=== PATIENT | female | born 1945 | race Caucasian/White ===

== ENCOUNTER → 2024-11-18 10:11 | Outpatient (REF) | payer OTHER, SELFPAY | LOC: RAD 10:11 | PROVIDERS: ATTENDING PHYSICIAN Internal Medicine Cardiovascular Disease; FAMILY PHYSICIAN Nurse Practitioner Family | DX: I49.3 Ventricular premature depolarization (principal); R07.89 Other chest pain; I10 Essential (primary) hypertension; E78.5 Hyperlipidemia, unspecified; I95.1 Orthostatic hypotension; R94.39 Abnormal result of other cardiovascular function study; I49.1 Atrial premature depolarization; R42 Dizziness and giddiness; R06.09 Other forms of dyspnea | CPT/HCPCS: 75574; Q9967 ==

== ENCOUNTER 2024-11-30 17:13 | Inpatient (IN) | payer OTHER, SELFPAY ==
[2024-11-30] VITALS (18 sets, daily range): BP systolic 83–167; BP diastolic 50–133; BMI 36.1
[2024-11-30 12:49] LABS: Glucose - Point of Care 160 mg/dl (70-99)
[2024-11-30 12:51] LABS: Hematocrit 43.0 % (37.0-47.0); Hemoglobin 14.4 g/dL (12.0-16.0); Mean Corp Hgb Conc. 33.5 g/dL (33.0-37.0); Mean Corpuscular Volume 94.7 fL (81.0-99.0); Platelet Count 215 10^3/uL (130-400); Red Cell Dist. Width 13.2 % (11.5-14.5)
[2024-11-30] MEDS: LOW STRENGTH ASPIRIN 81 MG PO (12:56)
[2024-11-30 13:10] LABS: Blood Urea Nitrogen 20 mg/dl (7-17); Calcium 9.5 mg/dl (8.4-10.2); Carbon Dioxide 31 mmol/L (22-30); Chloride 101 mmol/L (98-107); Estimated Creatinine Clearance 51 ml/min; Glucose 160 mg/dl (70-99); Potassium 4.2 mmol/L (3.5-5.1); Sodium 139 mmol/L (135-145); eGFR 56.60
[2024-11-30] MEDS: NSS 295 ML IV (14:18)
[2024-11-30 15:12] LABS: ACT-LR - POC 276 Seconds (116-155)
--- NOTE | 2024-11-30 16:32 | HPS.HSE ---
Family Physician
-
Family Physician: Tricia Hensley
Chief Complaint
-
Abnormal Cologuard, abnormal stress test
History of Present Illness
79-year-old female had an abnormal Cologuard test. She was referred for an outpatient stress test and coronary CT which were abnormal therefore sent in for a cath. Cath showed she has obstructive disease 80 to 85% ostial RCA and mid RCA. She
needs GI workup therefore PCI not done yet but planning in the near future as long as GI workup is negative. Patient is cleared for GI procedure per cardiology
Medical History
Past Medical History
Past Medical History: Reports CAD, HTN, Hypothyroidism and NIDDM
Additional Past Medical History:
depression, sleep apnea, history of lung cancer with radiation in 2022, COPD, fibromyalgia
Past Surgical History: Reports Other (B/L feet surgery since age 10)
Additional Past Surgical History:
Ablation for arrhythmia, bilateral feet surgeries since age 10
Social History
Tobacco: Former Smoker
Alcohol: None
Drug: None
Living: Alone
Family History
Family History: CAD (Mother) and Other (Father from CVA, mother with history of Alzheimer's dementia)
Allergies / Home Medications
Allergies reflects when Allergies were last updated in [facility].
Home Medications with original date entered in [facility]
Allergy/Medication List:
Allergies
Allergy/AdvReac Type Severity Reaction Status Date / Time
latex Allergy Itching Verified 11/30/24 14:23
nickel Allergy Itching Verified 11/30/24 14:23
soy Allergy Itching Verified 11/30/24 14:23
Sulfa (Sulfonamide Allergy Pharmacy Verified 11/30/24 14:23
Antibiotics) to Review
Home Medications
albuterol sulfate 90 mcg/actuation aerosol inhaler 2 puff inhalation 6XD 11/30/24
aspirin 81 mg tablet 81 mg PO DAILY 11/30/24
atenolol 25 mg tablet 25 mg PO DAILY 11/30/24
atorvastatin 40 mg tablet 40 mg PO DAILY 11/30/24
bupropion HCl 150 mg 24 hr tablet, extended release 150 mg PO DAILY 11/30/24
levothyroxine 50 mcg tablet 50 mcg PO DAILY 11/30/24
losartan 50 mg-hydrochlorothiazide 12.5 mg tablet 1 tab PO DAILY 11/30/24
meclizine 25 mg tablet 25 mg PO DAILY 11/30/24
metformin 500 mg tablet 500 mg PO BID 11/30/24
sodium sul 1.479 gram-potas ch 0.188 gram-magnes sul 0.225 gram tablet (Sutab) 0 tab PO PER PKG DIR 11/30/24
umeclidinium 62.5 mcg-vilanterol 25 mcg/actuation powdr for inhalation (Anoro Ellipta) 1 inh inhalation DAILY 11/30/24
venlafaxine 75 mg tablet 75 mg PO DAILY 11/30/24
Review of Systems
-
A 12 point ROS was completed and negative except as noted: Yes
Constitutional: Reports Other (Fibromyalgia)
Respiratory: Reports Trouble Breathing (With ambulation)
Cardiac: Denies Chest Pain
Physical Exam
Vital Signs
Vital Signs
Temp Pulse Resp BP Pulse Ox
97.5 F 68 12 130/67 95
11/30/24 12:35 11/30/24 15:46 11/30/24 15:46 11/30/24 15:46 11/30/24 16:16
Physical Exam
General: Comfortable and Conversant
Respiratory: Clear
Cardiac: S1/S2 and Regular Rhythm
GI: Soft, Non Tender and Normal Bowel Sounds
Skin: Other (Right wrist with good pulses)
Neuro: Nonfocal/grossly intact
Psych: Intact Judgment/Insight
Laboratory Results
-
11/30/24 12:43
11/30/24 12:43
Data Reviewed
-
Medical Tests (Nuc Med, Echo, EKG etc): Report Reviewed by me
Impression/Plan
-
IMPRESSION/PLAN:
ECHO 08/14/24- Technically suboptimal study.Normal left and right ventricular systolic function, but regional wall motion abnormality cannot be excluded due to the technical limitation.Grade 1 diastolic dysfunction.No significant valve disease.
Hypermobile possibly aneurysmal interatrial septum.
Coronary angiography 1924-left main-moderate to severe ostial calcified plaque , LAD-severe proximal and middle mid calcified Plaque, LCx-moderate to severe proximal calcified plaque, RCA-severe diffuse proximal to mid calcified plaque, severe
distal calcified plaque. Multivessel coronary disease.
# Positive Cologuard test
GI consultation for colonoscopy
Cardiology cleared for GI procedure
Clears starting tomorrow am.
# Coronary artery disease
Status post cath with no PCI given colonoscopy
Once GI workup is over patient needs PCI
Continue aspirin, statin
# Hypertension-continue losartan, atenolol.
# Diabetes-hemoglobin C9p--tdkjudj
Hold metformin given cardiac cath and may needing to be n.p.o.
Accu-Cheks and sliding scale coverage
# Depression-continue venlafaxine, bupropion
# Hyperlipidemia-continue statin
# Hypothyroidism-continue levothyroxine
# Sleep apnea-CPAP at 6 cm water
# Fibromyalgia
# History of lung cancer on the left side with history of radiation 2-1/2 years ago
# Pc-cspeor-jbaz over 35 years ago
# DVT prophylaxis-Lovenox
# CODE STATUS-full code
Discussed with nursing at bedside
D/W Cardiology
--- NOTE | 2024-11-30 17:18 | ITS.CL.CATH ---
Urology Nurse - Catheterization
Cardiac Catheterization
Procedure Report:
LEFT HEART CATHETERIZATION
Date of Procedure: November 30, 2024
Referring: Mark Jones MD
PROCEDURES:
1. Left heart catheterization, coronary angiogram.
2. Moderate sedation.
3. Intravascular ultrasound of distal Left main/ostial left circumflex
INDICATION: Ongoing dyspnea on exertion with abnormal CT coronary angiogram and stress test as an outpatient.
ACCESS: Right radial artery, 6Fr. sheath, under US guidance.
HEMODYNAMICS : (mmHg)
AO (s/d) : 122/67
LVEDP : 13
No significant gradient across the aortic valve to suggest aortic stenosis.
CORONARY FINDINGS
Dominance: Right
Left Main Trunk (LMT): Large caliber vessel that gives rise to the LAD and LCx branches and is free of angiographic disease. Distal left main has 20% calcified plaque.
Left Anterior Descending Artery (LAD): Large caliber vessel that gives off 1 major diagonal branches as it courses along the anterior inter-ventricular groove before wrapping around the cardiac apex. Mid to distal LAD has diffuse 40 to 50%
stenosis. Ostial D1 has 40 to 50% stenosis.
Left Circumflex Artery (LCx): Large caliber vessel that gives off 2 major obtuse marginal (OM) branches as it courses along the atrio-ventricular (AV) groove. Ostial left circumflex has 40% calcified stenosis. Otherwise , there is mild to
moderate diffuse atherosclerotic plaque without any focal obstructive lesions.
Right Coronary Artery (RCA): Medium caliber dominant vessel that gives rise to the posterior descending artery (RPDA) and postero-lateral ventricular (RPLV) branches distally. There is calcium noted in the aorta at the takeoff of the RCA. Ostial
RCA has a 75 to 80% stenosis. Mid RCA has a focal 80% stenosis. SASHA-3 flow was noted into the distal vessel. Right posterolateral system has diffuse moderate to severe stenosis with zphb-au-xauyl collaterals from the left posterolateral branch.
In one of the images, competitive flow is noted in the left posterolateral branch from the RPL system.
IVUS of Distal LAD: Given concern for significant distal left main stenosis versus ostial left circumflex stenosis decision was made to proceed with intravascular ultrasound to interrogate the distal LAD further. The left coronary artery was
selectively engaged using a 6 [place] EBU 3.5 guide catheter. Additional heparin was given to maintain a therapeutic ACT throughout the case. A 190 cm 0.014 run-through wire was carefully navigated into the distal left circumflex. Using a [place]
eye IVUS catheter careful pullback was completed with multiple measurements obtained in the ostial left circumflex as well as distal left main regions which showed calcified plaque. The minimal luminal area in both of these regions were still
significantly higher than 6 mm� (ranging anywhere from 9-10mm2).
SEDATION: 37 minutes of procedural sedation was utilized. IV Midazolam and IV Fentanyl were administered. An independent medical office representative was present to assist with and help manage the patient's level of consciousness and physiologic status.
RADIATION SUMMARY: Fluoro Time (min): 6.8, Dose (mGy): 544.94, DAP (Gy.cm2) : 35.0
Closure Device: There were no immediate intra-procedural complications. The sheath was pulled in the laboratory technology teacher and a vascular-band applied to the right wrist for radial artery hemostasis using the patent hemostasis technique.
CONCLUSIONS
1. Ostial RCA has a 75 to 80% stenosis. Mid RCA has a focal 80% stenosis.
2. Mid to distal LAD has diffuse 40 to 50% stenosis. Ostial D1 has 40 to 50% stenosis.
3. Ostial left circumflex has 40% calcified stenosis. Otherwise , there is mild to moderate diffuse atherosclerotic plaque without any focal obstructive lesions.
4. Intravascular ultrasound of distal left main did not reveal any obstructive coronary artery disease.
RECOMMENDATIONS
1. Wean radial band per protocol. Monitor right hand perfusion and for bleeding from the radial site following removal of the vascular-band following trans-radial access.
2. Continue aggressive medical therapy and risk factor modification for secondary CAD prevention.
3. Hydrate with normal saline to mitigate the risk of contrast-induced acute kidney injury.
4. Given recently positive Cologuard, after discussion extensively with the family in the setting of ongoing dyspnea on exertion on at least 1 antianginal therapy, plan to obtain inpatient GI consult for consideration for colonoscopy to assess
underlying etiology for positive Cologuard in case that would preclude patient from being able to tolerate dual antiplatelet therapy. We did discuss medical therapy versus PCI of RCA and in a shared decision-making fashion family would prefer PCI
along with medications. We will optimize medications and add a second antianginal in the meantime. Given she is not complaining of any ACS symptoms with RCA disease as noted above, she is overall still low risk for undergoing endoscopy/colonoscopy
as recommended by GI. Depending on GI input and workup we will discuss timing of PCI.
Copy to: Mark Jones MD
Adilia Mathews MD, FACC, [facility]
[2024-11-30 18:14] LABS: Glucose - Point of Care 171 mg/dl (70-99)
--- NOTE | 2024-11-30 18:55 | PTCARENOTE ---
Patient received from the record label intern, assisted to bed. Right radial band intact with 11cc of air. Patient with persistent vertigo being worked up for vestibular vertigo as and out patient. She had vertigo but it did resolve while I was in the room.
She is AO x3, [place] with aids. NSR in the 80's, BP 109/53. Shortness of breath with exertion, lungs diminished 93% on room air. Left mid back chronic pain occasionally radiates to her left shoulder, rates 5 out 10. Assisted to the bathroom, patient is
not to walk to the bathroom unassisted and she verbalized understanding, call adler placed in reach
[2024-11-30] MEDS: SENOKOT 17.2 MG PO (20:37)
[2024-11-30] MEDS: MIRALAX 17 GRAMS PO (20:37)
[2024-11-30] MEDS: NORVASC 2.5 MG PO (20:37)
[2024-11-30 23:03] LABS: Glucose - Point of Care 159 mg/dl (70-99)
[2024-11-30] MEDS: MELATONIN 5 MG PO (23:33)
[2024-11-30] MEDS: TYLENOL 650 MG PO (23:33)
--- NOTE | 2024-12-01 00:02 | PTCARENOTE ---
Patient received at change of shift resting in the bed. Right radial TR band intact, pox 94-95% on right hand, radial pulse palpable. Discussed activity restrictions with patient who verbalized understanding but needs reinforcement with
restrictions. The TR band was removed without incident, gauze and tegaderm applied. Discussed extensively with patient to use the call adler when getting out of bed due to recent issues with vertigo. A bed and chair alarm were placed. Sinus rhythm on
telemetry. The patient denies chest pain but endorses chronic left lower/mid back pain, PRN acetaminophen and one time dose of melatonin given per patient request, see MAR. Plan of care discussed. Call adler within reach. Care ongoing.
[2024-12-01 03:21] VITALS: BP 111/59
[2024-12-01 03:24] VITALS: BMI 35.9
[2024-12-01 04:11] LABS: Hematocrit 39.6 % (37.0-47.0); Hemoglobin 13.1 g/dL (12.0-16.0); Mean Corp Hgb Conc. 33.1 g/dL (33.0-37.0); Mean Corpuscular Volume 95.2 fL (81.0-99.0); Platelet Count 208 10^3/uL (130-400); Red Cell Dist. Width 13.2 % (11.5-14.5)
[2024-12-01 04:36] LABS: Blood Urea Nitrogen 23 mg/dl (7-17); Calcium 9.3 mg/dl (8.4-10.2); Carbon Dioxide 26 mmol/L (22-30); Chloride 103 mmol/L (98-107); Estimated Creatinine Clearance 57 ml/min; Glucose 135 mg/dl (70-99); HDL Cholesterol 37 mg/dl; LDL Cholesterol, Calculated 68 mg/dl; Potassium 4.1 mmol/L (3.5-5.1); Sodium 139 mmol/L (135-145); Very Low Density Lipoprotein 47 mg/dl (0-30); eGFR > 60.00
[2024-12-01] MEDS: SYNTHROID 50 MCG PO (06:10)
[2024-12-01] MEDS: SPIRIVA RESPIMAT 2.5 MCG 2 PUFF INH (08:00)
[2024-12-01] MEDS: STRIVERDI RESPIMAT 2 PUFF INH (08:01)
[2024-12-01 08:26] VITALS: BP 131/66
--- NOTE | 2024-12-01 08:31 | W.PN.CARDCBS ---
Addendum entered and electronically signed by mSith Mireles MD 12/01/24 14:18:
I saw and examined the patient.
The CARDIOLOGY COORDINATOR or PA's note was reviewed and I agree with the note.
Comment: General: Well developed, well nourished in NAD.
Neck: Supple, no JVD, HJR, carotids +2 B/L, no bruits bilaterally.
Heart: Non displaced PMI, RRR, no murmurs, No S3, S4, no rubs.
Lungs: Clear to auscultation bilaterally, no wheeze, rhonchi, rubs bilaterally,
normal expiratory phase.
Extremities: No clubbing, cyanosis or edema bilaterally.
Neuro: Grossly nonfocal, awake, alert and oriented x3.\\
Remains stable from cardiology viewpoint for GI testing. Await GI approval for DAPT therapy then we will do RCA stent.
Original Note:
Today's Communication / Plan
-
GI evaluation
Eventual Nitric Acid Plant Operator for RCA intervention when cleared by GI
Impression / Plan
-
Primary [facility]: Dr. Jones REPLACED BY [facility]
Assessment:
Abnormal cardiac CTA/nuclear stress test with RCA lesion by cath 11/30/2024
Positive outpatient Cologuard test
Dyspnea on exertion
Orthostatic hypotension
PVCs
Hypertension
Hyperlipidemia
Hypothyroidism
Depression/anxiety
BPPV
ECHO 08/14/2024: EF 60 to 65%, grade 1 diastolic dysfunction, no significant valvular heart disease seen, hypermobile possible aneurysmal interatrial septum
Plan:
- Patient with complaints of dyspnea on exertion and history of abnormal nuclear stress testing underwent cardiac CTA on 11/18/2024 which showed significant multivessel CAD including moderate to severe ostial left main, severe proximal and mid LAD,
moderate to severe left circumflex and severe diffuse proximal and mid RCA and distal RCA plaque with calcium score of 1901.99. She was then referred for cardiac catheterization which she underwent on 11/30/2024 which showed ostial and mid RCA
stenoses of approximately 80% as well as moderate LAD and circumflex disease without focal obstructive lesions and distal left main without obstructive coronary artery disease.
- Complicating matters, patient had recent positive Cologuard test. She was admitted post cath with plan for GI workup/evaluation. hemoglobin 13.1
- When/if cleared by GI, plan to return to Nitric Acid Plant Operator for RCA PCI, timing to be determined based on GI eval.
- Continue medical therapy of CAD at this time including aspirin, statin, atenolol, Cozaar, HCTZ, Norvasc. She is presently without complaints of chest pain
- LVEDP 13 at time of cath
- Echo from 08/14/2024 as above
Progress Note - [facility]
Subjective
Date of Service: December 01, 2024
No complaints of chest pain. Does report some dyspnea with deep breathing or with exertion
Objective
Labs:
12/01/24 03:31
12/01/24 03:31
Labs
Hgb 13.1 g/dL (12.0-16.0) 12/01/24 03:31
Hct 39.6 % (37.0-47.0) 12/01/24 03:31
Plt Count 208 10^3/uL (130-400) 12/01/24 03:31
Sodium 139 mmol/L (135-145) 12/01/24 03:31
Potassium 4.1 mmol/L (3.5-5.1) 12/01/24 03:31
BUN 23 mg/dl (7-17) H 12/01/24 03:31
Creatinine 0.9 mg/dL (0.6-1.0) 12/01/24 03:31
Glucose 135 mg/dl (70-99) H 12/01/24 03:31
Vital Signs and I&O:
Vital Signs
Temp Pulse Resp BP Pulse Ox
97.6 F 71 18 111/59 94
12/01/24 08:23 12/01/24 08:23 12/01/24 08:23 12/01/24 03:21 12/01/24 08:23
Vital Signs
Temp Pulse Resp BP Pulse Ox
97.6 F 71 18 111/59 94
12/01/24 08:23 12/01/24 08:23 12/01/24 08:23 12/01/24 03:21 12/01/24 08:23
Intake & Output
11/29/24 11/30/24 12/01/24 12/02/24
07:59 07:59 07:59 07:59
Intake Total 1280 / 1280
Balance 1280 / 1280
Physical Exam
Physical Exam
GEN: No distress, awake, alert, oriented x3. Obese. AFO[place]NAK
HEENT: supple, anicteric, mmm, EOMI
LUNGS: CTA bilaterally, no wheezes/rales
CV: Reg, S1/S2, no murmur
ABD: soft, BS+, NT/ND
EXT: No cyanosis, clubbing, edema
NEURO: Gross non-focal
SKIN: Warm, pink, dry. No rash. Right wrist site with dressing CDI, nontender to palpation
[2024-12-01] MEDS: ORETIC 12.5 MG PO (08:39)
[2024-12-01] MEDS: MIRALAX 17 GRAMS PO (08:39)
[2024-12-01] MEDS: TENORMIN 25 MG PO (08:39)
[2024-12-01] MEDS: EFFEXOR 75 MG PO (08:39)
[2024-12-01] MEDS: ANTIVERT 25 MG PO (08:40)
[2024-12-01] MEDS: COZAAR 50 MG PO (08:40)
[2024-12-01] MEDS: LIPITOR 40 MG PO (08:40)
[2024-12-01] MEDS: NORVASC 2.5 MG PO (08:40)
[2024-12-01] MEDS: LOW STRENGTH ASPIRIN 81 MG PO (08:40)
[2024-12-01 08:59] LABS: Glucose - Point of Care 184 mg/dl (70-99)
[2024-12-01] MEDS: NOVOLOG FLEXPEN-LOW RESISTANCE 1 UNITS SC ×2 (08:59→13:01)
--- NOTE | 2024-12-01 09:28 | W.PN.HOSP.TC ---
Today's Communication/Plan
-
Await GI evaluation
Clear liquid diet
Assessment / Plan
Assessment / Plan
79-year-old female had an abnormal Cologuard test. She was referred for an outpatient stress test and coronary CT which were abnormal therefore sent in for a cath. Cath showed she has obstructive disease 80 to 85% ostial RCA and mid RCA. She
needs GI workup therefore PCI not done yet but planning in the near future as long as GI workup is negative. Patient is cleared for GI procedure per cardiology
11/30/2024-cardiac cath-ostial RCA 75 to 80% stenosis. Mid RCA focal 80% stenosis. Mid to distal LAD has diffuse 40 to 50% stenosis. Ostial B1 40 to 50% stenosis. Ostial left circumflex 40% calcified stenosis
ECHO 08/14/24- Technically suboptimal study.Normal left and right ventricular systolic function, but regional wall motion abnormality cannot be excluded due to the technical limitation.Grade 1 diastolic dysfunction.No significant valve disease.
Hypermobile possibly aneurysmal interatrial septum.
Coronary angiography 1924-left main-moderate to severe ostial calcified plaque , LAD-severe proximal and middle mid calcified Plaque, LCx-moderate to severe proximal calcified plaque, RCA-severe diffuse proximal to mid calcified plaque, severe
distal calcified plaque. Multivessel coronary disease.
Patient awake alert
Cardiovascular system S1-S2 appreciated
Chest clear to auscultation
# Positive Cologuard test
GI consultation for colonoscopy
Cardiology cleared for GI procedure
Clears starting this am.
# Coronary artery disease
Status post cath with no PCI given colonoscopy
Once GI workup is over patient needs PCI
Continue aspirin, statin
LDL acceptable
# Hypertension-continue losartan, atenolol.
# Diabetes-hemoglobin U0t--cdvgjki
Hold metformin given cardiac cath and needing to be n.p.o. for GI procedures
Accu-Cheks and sliding scale coverage
# Depression-continue venlafaxine, bupropion
# Hyperlipidemia-continue statin
# Hypothyroidism-continue levothyroxine
# Sleep apnea-CPAP at 6 cm water
# Fibromyalgia
# History of lung cancer on the left side with history of radiation 2-1/2 years ago
# Yf-opwnic-nyyy over 35 years ago
# DVT prophylaxis-Lovenox
# CODE STATUS-full code
Part of this note was created using voice recognition system. Occasional wrong word or��sound alike� substitutions may have inadvertently occurred due to the inherent limitations of voice recognition software. If noted kindly bring it to my
attention for correction.
Anticipated Discharge: > 48 hours
Subjective/Interval History
-
Date of Service: December 01, 2024
Objective Data
-
Labs:
Laboratory Results
12/01/24
03:31
WBC 10.1
Hgb 13.1
Hct 39.6
Plt Count 208
Sodium 139
Potassium 4.1
Chloride 103
Carbon Dioxide 26
BUN 23 H
Creatinine 0.9
Glucose 135 H
Calcium 9.3
Vital Signs:
Vital Signs
Temp Pulse Resp BP Pulse Ox
97.6 F 71 18 111/59 94
12/01/24 08:23 12/01/24 08:23 12/01/24 08:23 12/01/24 03:21 12/01/24 08:23
I&O
11/30/24 12/01/24 12/02/24
06:59 06:59 06:59
Intake Total 1280 / 1280
Balance 1280 / 1280
[2024-12-01] MEDS: NULYTELY SOLUTION 4 LITERS PO (09:42)
[2024-12-01] MEDS: DULCOLAX 10 MG PO (09:42)
--- NOTE | 2024-12-01 09:48 | PTCARENOTE ---
Assumed care. Patient AO x3, [place], hearing aids in place, intermittent vertigo. SR, left mid back back with movement. Assisted to chair. Golelty prep started and Dulcolax given. Patient in chair, using call adler for bathroom assistance
[2024-12-01 09:59] LABS: Glycohemoglobin (HgbA1c) 7.0 % (4.0-5.6)
--- NOTE | 2024-12-01 10:07 | CON.GI ---
Addendum entered and electronically signed by Latonya Quintanilla Do, MD 12/01/24 16:06:
I saw and evaluated the patient. I reviewed the resident�s note and agree with findings and plan as documented in the resident�s note.
Micheal is an 79yo W lives alone with h/o DM, HTN and CAD who was admitted post cardiac cath for chest pains. She requires cardiac stenting but that is on hold as she has + cologuard. She had this done for loose stools post starting ozempic in the
past. Her last Cscope was over 10yrs ago. She denies abd pain, diarrhea or nausea/vomiting. Vitals stable, NTTP, NABS. obese. Labs reviewed no anemia.
Impression
- + cologuard with recent change in bowel habits
ddx includes polyp, ectasia or occult malignancy
- GERD
- CAD with + LHC
- DM
- HTN
- Obesity
- Peripheral neuropathy
- Fibromyalgia
- Hypothyroidism
- Remote lung ca s/p XRT
Recommendations
- Start Golylte now at 9am
- C/w CLD
- Slow prep with NPO at MN
- C/w protonix, advise her to avoid nsaids in future
- Anticipate EGD/colonoscopy tomorrow
- Daughter updated via phone by me
Will follow with you
Original Note:
Consultation
-
Date/Time Consultation Requested: 11/30/2024
Date/Time Consultation Performed: 12/01/2024
Requesting Provider: Fred Armas MD
Performing Provider: Latonya Dai MD; Eren Poe MD
Reason for Consultation: Abnormal cologuard test
Medical History
Chief Complaint / HPI
Chief Complaint: abnormal cologuard test
History of Present Illness:
79 yo F PMH of CAD, HTN, T2DM, hypothyroid who was found to have abnormal cardiac catheterization. She also had an abnormal cologuard test done by her PCP which prompted the GI consult to evaluate before proceeding to a PCI with cardiology.
She denies any hematochezia or melena. She denies any abdominal pain. No recent changes in bowel habits. She reports some looser stools related to a trial of ozempic (whcih she no longer takes) approximately 1 year ago that had resolved. She denies
to me constipation or straining when passing stools.
She denies nausea or vomiting.
Her last colonoscopy was 10-11 years ago at a medical office building in [place], which she reports was unremarkable.
Of note, the patient is hard of hearing and has only 1 working hearing aid (in L ear).
Other ROS: she has some chest pain, and dyspnea on exertion. She has a minimally displaced posterior left rib fracture. But otherwise denies other symptoms.
PMH: CAD, HTN, Hypothyrodism, T2DM, fibromyalgia, peripheral neuropathy, minimally displaced rib fracture left posterior, lung cancer diagnosed ~2 years ago at [facility], required radiation therapy only, and is now in remission.
PSH: per chart review; arrhythmia ablation, bilateral feet surgeries
Past Medical History
Past Medical History: CAD, Cancer, HTN, Hypothyroidism and NIDDM
Past Surgical History: Other (per chart review; arrhythmia ablation, bilateral feet surgeries )
Social History
Tobacco: Former Smoker (quit 30 years ago)
Alcohol: Former (quit 30 years ago)
Drug: None
Personal: Other ( ~1.5 years ago)
Living: Other (independent living in apartment)
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
Family History
Family History: CAD (mom)
Allergies / Home Medications
Allergy/AdvReac Type Severity Reaction Status Date / Time
latex Allergy Itching Verified 11/30/24 18:23
nickel Allergy Itching Verified 11/30/24 18:23
soy Allergy Itching Verified 11/30/24 18:23
Sulfa (Sulfonamide Allergy Pharmacy Verified 11/30/24 18:23
Antibiotics) to Review
�Medication �Instructions �Recorded
albuterol sulfate 90 mcg/actuation 2 puff inhalation 6XD 11/30/24
aerosol inhaler
aspirin 81 mg tablet 81 mg PO DAILY 11/30/24
atenolol 25 mg tablet 25 mg PO DAILY 11/30/24
atorvastatin 40 mg tablet 40 mg PO DAILY 11/30/24
bupropion HCl 150 mg 24 hr tablet, 150 mg PO DAILY 11/30/24
extended release
ibuprofen 200 mg tablet 400 mg PO Q6H PRN back pain 11/30/24
levothyroxine 50 mcg tablet 50 mcg PO DAILY 11/30/24
losartan 50 mg-hydrochlorothiazide 1 tab PO DAILY 11/30/24
12.5 mg tablet
meclizine 25 mg tablet 25 mg PO DAILY 11/30/24
metformin 500 mg tablet 500 mg PO BID 11/30/24
sodium sul 1.479 gram-potas ch 0 tab PO PER PKG DIR 11/30/24
0.188 gram-magnes sul 0.225 gram
tablet (Sutab)
umeclidinium 62.5 mcg-vilanterol 1 inh inhalation DAILY 11/30/24
25 mcg/actuation powdr for
inhalation (Anoro Ellipta)
venlafaxine 75 mg tablet 75 mg PO DAILY 11/30/24
Review of Systems
-
History Source: Patient
Constitutional: Reports No Symptoms
EENT: Reports No Symptoms
Respiratory: Reports Trouble Breathing (some dyspnea on exertion)
Cardiac: Reports Chest Pain
Abdomen/GI: Reports Other (denies abdominal pain, nausea, vomiting, changes in bowel habits, bloody or dark stools)
: Reports No Symptoms
Musculoskeletal: Reports No Symptoms
Skin: Reports No Symptoms
Neurological: Reports Other (peripheral neuropathy and fibromyaglia)
Vital Signs
Temp Pulse Resp BP Pulse Ox
97.6 F 77 18 131/66 92
12/01/24 08:23 12/01/24 09:00 12/01/24 08:23 12/01/24 08:26 12/01/24 08:26
Physical Exam
Exam
General: No Apparent Distress
HEENT: Normocephalic and Anicteric
Respiratory: Clear (on my exam)
Cardiac: Murmur (no murmurs on my exam)
GI: Soft, Non Tender, Non Distended and Normal Bowel Sounds (was not able to appreciate bowel sounds on my exam)
Rectal: Deferred by Provider
Musculoskeletal: No Edema
Neuro: AO x 3, No Motor Deficits and Other (patient is hard of hearing, has hearing aid only in L ear)
Psych: Calm
She reports some back pain near left side. Attributed to minimally displaced rib fracture seen on CT coronary Sept 2024.
Results
VS:
131/66; HR 77; 18; 97.6; 92%
WBC 10.1 10^3/uL (4.8-10.8) 12/01/24 03:31
Hgb 13.1 g/dL (12.0-16.0) 12/01/24 03:31
Hct 39.6 % (37.0-47.0) 12/01/24 03:31
MCV 95.2 fL (81.0-99.0) 12/01/24 03:31
Plt Count 208 10^3/uL (130-400) 12/01/24 03:31
Sodium 139 mmol/L (135-145) 12/01/24 03:31
Potassium 4.1 mmol/L (3.5-5.1) 12/01/24 03:31
Chloride 103 mmol/L (98-107) 12/01/24 03:31
Carbon Dioxide 26 mmol/L (22-30) 12/01/24 03:31
BUN 23 mg/dl (7-17) H 12/01/24 03:31
Creatinine 0.9 mg/dL (0.6-1.0) 12/01/24 03:31
Calcium 9.3 mg/dl (8.4-10.2) 12/01/24 03:31
Prior GI Procedures:
Colonoscopy:
she reports colonoscopy normal in 10-11 years ago, done at an medical office complex in [place], as far as she knows, not affiliated with [facility]
Assessment / Plan
-
In summary, 79 yo F PMH CAD with abnormal cardiac catherization, HTN, T2DM, hypothyroidism p/w abnormal cologuard test requiring GI evaluation before proceeding to PCI with cardiology.
# Abnormal cologuard test
- A colonoscopy is indicated to evaluate abnormal cologuard test
- Her last colonoscopy was 10-11 years ago and reported normal.
- colonoscopy prep (miralax, bisacodyl) today
- clear liquid diet, then NPO at midnight for procedure
- continue aspirin 81mg; no other antiplatelet or anticoagulation medications on my review.
- Recommendations are not final until discussed with Dr. Dai, GI attg
-
-
Thank you for consultation and allowing me to participate in the patient's care. Please call the magnetic resonance imaging coordinator GI physician during the after hours with any questions or concerns.
--- NOTE | 2024-12-01 11:10 | CM ---
Chart reviewed. Patient is independent of ADLS, lives alone in a [place] at [facility], [facility], elevator access, 0 DME. Plan is for the patient to return home. CM to follow
[2024-12-01 12:04] VITALS: BP 124/66
[2024-12-01 12:26] LABS: Glucose - Point of Care 172 mg/dl (70-99)
--- NOTE | 2024-12-01 13:03 | PTCARENOTE ---
Tolerating prep, half prep consumed
[2024-12-01 15:09] VITALS: BP 124/84
--- NOTE | 2024-12-01 17:04 | PTCARENOTE ---
Tolerating prep, watery yellow stools. NSR, VSS, call adler in reach
[2024-12-01 17:21] LABS: Glucose - Point of Care 138 mg/dl (70-99)
[2024-12-01] MEDS: NOVOLOG FLEXPEN-LOW RESISTANCE SC (17:36)
[2024-12-01] MEDS: PROTONIX IV 40 MG IV (18:20)
[2024-12-01] MEDS: LOVENOX 40 MG SC (18:25)
[2024-12-01] MEDS: SENOKOT PO (21:28)
[2024-12-01 21:42] VITALS: BP 136/69
[2024-12-01 21:44] LABS: Glucose - Point of Care 134 mg/dl (70-99)
[2024-12-01] MEDS: MELATONIN 5 MG PO (21:58)
--- NOTE | 2024-12-01 22:44 | PTCARENOTE ---
Received pt @ change of shift. AAOx3, VSS-- NSR on monitor. Right radial site clean, dry, and intact. Ecchymotic, but soft to touch. Pt continuing to drink colonoscopy prep for AM. Discussed plan of care. Pt verbalizes understanding, including only
clear liquids until 4 hrs pre-procedure. Call adler within reach.
[2024-12-02 03:32] VITALS: BP 141/65
[2024-12-02 04:42] LABS: Hematocrit 38.0 % (37.0-47.0); Hemoglobin 12.5 g/dL (12.0-16.0); Mean Corp Hgb Conc. 32.9 g/dL (33.0-37.0); Mean Corpuscular Volume 94.1 fL (81.0-99.0); Platelet Count 177 10^3/uL (130-400); Red Cell Dist. Width 13.2 % (11.5-14.5)
[2024-12-02 05:07] LABS: Blood Urea Nitrogen 16 mg/dl (7-17); Calcium 9.4 mg/dl (8.4-10.2); Carbon Dioxide 28 mmol/L (22-30); Chloride 104 mmol/L (98-107); Estimated Creatinine Clearance 64 ml/min; Glucose 134 mg/dl (70-99); Potassium 3.6 mmol/L (3.5-5.1); Sodium 139 mmol/L (135-145); eGFR > 60.00
[2024-12-02] MEDS: SYNTHROID 50 MCG PO (06:23)
[2024-12-02 08:10] VITALS: BP 126/56
[2024-12-02 08:13] LABS: Glucose - Point of Care 146 mg/dl (70-99)
[2024-12-02] MEDS: COZAAR 50 MG PO (08:14)
[2024-12-02] MEDS: LOW STRENGTH ASPIRIN 81 MG PO (08:14)
[2024-12-02] MEDS: NOVOLOG FLEXPEN-LOW RESISTANCE SC ×3 (08:14→17:29)
[2024-12-02] MEDS: TENORMIN 25 MG PO (08:14)
[2024-12-02] MEDS: ORETIC 12.5 MG PO (08:14)
[2024-12-02] MEDS: NORVASC 2.5 MG PO (08:14)
[2024-12-02] MEDS: LIPITOR 40 MG PO (08:14)
[2024-12-02] MEDS: EFFEXOR 75 MG PO (08:14)
[2024-12-02] MEDS: ANTIVERT 25 MG PO (08:14)
[2024-12-02] MEDS: PROTONIX IV 40 MG IV (08:15)
[2024-12-02] MEDS: MIRALAX PO (08:15)
--- NOTE | 2024-12-02 08:41 | PTCARENOTE ---
Pt is AOx3, no complaints of pain or discomfort. Pt is [place], hearing aids charging at this time. Plan for EGD/Colonoscopy later this AM. Pt and daughter aware of tentative timing for procedure. SR on tele monitor, VSS. Call adler within reach.
[2024-12-02] MEDS: STRIVERDI RESPIMAT INH (08:43)
[2024-12-02] MEDS: SPIRIVA RESPIMAT 2.5 MCG INH (08:43)
--- NOTE | 2024-12-02 09:50 | PTCARENOTE ---
pt left for GI lab. Report given to Kortney DE JESUS.
--- NOTE | 2024-12-02 10:10 | W.PN.HOSP.TC ---
Today's Communication/Plan
-
EGD/Colonoscopy today
Assessment / Plan
Assessment / Plan
79-year-old female had an abnormal Cologuard test. She was referred for an outpatient stress test and coronary CT which were abnormal therefore sent in for a cath. Cath showed she has obstructive disease 80 to 85% ostial RCA and mid RCA. She
needs GI workup therefore PCI not done yet but planning in the near future as long as GI workup is negative. Patient is cleared for GI procedure per cardiology
11/30/2024-cardiac cath-ostial RCA 75 to 80% stenosis. Mid RCA focal 80% stenosis. Mid to distal LAD has diffuse 40 to 50% stenosis. Ostial B1 40 to 50% stenosis. Ostial left circumflex 40% calcified stenosis
ECHO 08/14/24- Technically suboptimal study.Normal left and right ventricular systolic function, but regional wall motion abnormality cannot be excluded due to the technical limitation.Grade 1 diastolic dysfunction.No significant valve disease.
Hypermobile possibly aneurysmal interatrial septum.
Coronary angiography 1924-left main-moderate to severe ostial calcified plaque , LAD-severe proximal and middle mid calcified Plaque, LCx-moderate to severe proximal calcified plaque, RCA-severe diffuse proximal to mid calcified plaque, severe
distal calcified plaque. Multivessel coronary disease.
Patient awake alert
Cardiovascular system S1-S2 appreciated
Chest clear to auscultation
# Positive Cologuard test
EGD/Colonoscopy today 12/02/24
Prepping with GoLytely
# Coronary artery disease
Status post cath with no PCI given colonoscopy
Once GI workup is over patient needs PCI
Continue aspirin, statin
LDL acceptable
# Hypertension-continue losartan, atenolol.
# Diabetes-hemoglobin A1c--7.0
Hold metformin given cardiac cath and needing to be n.p.o. for GI procedures
Accu-Cheks and sliding scale coverage
# Depression-continue venlafaxine, bupropion
# Hyperlipidemia-continue statin
# Hypothyroidism-continue levothyroxine
# Sleep apnea-CPAP at 6 cm water
# Fibromyalgia
# History of lung cancer on the left side with history of radiation 2-1/2 years ago
# Fc-orxfzh-byfm over 35 years ago
# DVT prophylaxis-Lovenox
# CODE STATUS-full code
Part of this note was created using voice recognition system. Occasional wrong word or��sound alike� substitutions may have inadvertently occurred due to the inherent limitations of voice recognition software. If noted kindly bring it to my
attention for correction.
Anticipated Discharge: > 48 hours
Subjective/Interval History
-
Date of Service: December 02, 2024
Objective Data
-
Labs:
Laboratory Results
12/02/24
03:37
WBC 9.1
Hgb 12.5
Hct 38.0
Plt Count 177
Sodium 139
Potassium 3.6
Chloride 104
Carbon Dioxide 28
BUN 16
Creatinine 0.8
Glucose 134 H
Calcium 9.4
Vital Signs:
Vital Signs
Temp Pulse Resp BP Pulse Ox
98.2 F 102 20 126/56 94
12/02/24 08:25 12/02/24 08:14 12/02/24 08:25 12/02/24 08:14 12/02/24 08:25
I&O
12/01/24 12/02/24 12/03/24
06:59 06:59 06:59
Intake Total 1280 / 1280 3840 / 3840
Balance 1280 / 1280 3840 / 3840
[2024-12-02 11:10] LABS: Glucose - Point of Care 160 mg/dl (70-99)
--- NOTE | 2024-12-02 12:25 | W.PN.CARDCBS ---
Addendum entered and electronically signed by Smith Mireles MD 12/02/24 12:47:
I saw and examined the patient.
The OYSTER SHUCKER or PA's note was reviewed and I agree with the note.
Comment: General: Well developed, well nourished in NAD.
Neck: Supple, no JVD, HJR, carotids +2 B/L, no bruits bilaterally.
Heart: Non displaced PMI, RRR, no murmurs, No S3, S4, no rubs.
Lungs: Clear to auscultation bilaterally, no wheeze, rhonchi, rubs bilaterally,
normal expiratory phase.
Extremities: No clubbing, cyanosis or edema bilaterally.
Neuro: Grossly nonfocal, awake, alert and oriented x3.
GI approved DAPT therapy. Possible stent on 12/03 depending on interventional cardiology input. Discussed with interventional cardiology and GI
Original Note:
Today's Communication / Plan
-
discuss timing of RCA PCI with IC
DAPT ok to start 12/03 per GI
Impression / Plan
-
Primary Registrar Assistant: Dr. Jones [facility]
Assessment:
Abnormal cardiac CTA/nuclear stress test with RCA lesion by cath 11/30/2024
Positive outpatient Cologuard test
Dyspnea on exertion
Orthostatic hypotension
PVCs
Hypertension
Hyperlipidemia
Hypothyroidism
Depression/anxiety
BPPV
ECHO 08/14/2024: EF 60 to 65%, grade 1 diastolic dysfunction, no significant valvular heart disease seen, hypermobile possible aneurysmal interatrial septum
Plan:
- Patient with complaints of dyspnea on exertion and history of abnormal nuclear stress testing underwent cardiac CTA on 11/18/2024 which showed significant multivessel CAD including moderate to severe ostial left main, severe proximal and mid LAD,
moderate to severe left circumflex and severe diffuse proximal and mid RCA and distal RCA plaque with calcium score of 1901.99. She was then referred for cardiac catheterization which she underwent on 11/30/2024 which showed ostial and mid RCA
stenoses of approximately 80% as well as moderate LAD and circumflex disease without focal obstructive lesions and distal left main without obstructive coronary artery disease.
- Complicating matters, patient had recent positive Cologuard test. appreciate GI input. underwent EGD/colonoscopy today which showed gastritis and duodenitis with several colonic polyps s/p removal.
- ok per GI to proceed with DAPT tomorrow
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
- Continue medical therapy of CAD at this time including aspirin, statin, atenolol, Cozaar, HCTZ, Norvasc. She is presently without complaints of chest pain
- LVEDP 13 at time of cath
- Echo from 08/14/2024 as above
Progress Note - Registrar Assistant
Subjective
Date of Service: December 02, 2024
denies CP, SOB
Objective
Labs:
12/02/24 03:37
12/02/24 03:37
Labs
Hgb 12.5 g/dL (12.0-16.0) 12/02/24 03:37
Hct 38.0 % (37.0-47.0) 12/02/24 03:37
Plt Count 177 10^3/uL (130-400) 12/02/24 03:37
Sodium 139 mmol/L (135-145) 12/02/24 03:37
Potassium 3.6 mmol/L (3.5-5.1) 12/02/24 03:37
BUN 16 mg/dl (7-17) 12/02/24 03:37
Creatinine 0.8 mg/dL (0.6-1.0) 12/02/24 03:37
Glucose 134 mg/dl (70-99) H 12/02/24 03:37
Vital Signs and I&O:
Vital Signs
Temp Pulse Resp BP Pulse Ox
98.7 F 77 18 126/56 94
12/02/24 11:43 12/02/24 10:00 12/02/24 11:43 12/02/24 08:14 12/02/24 11:43
Vital Signs
Temp Pulse Resp BP Pulse Ox
98.7 F 77 18 126/56 94
12/02/24 11:43 12/02/24 10:00 12/02/24 11:43 12/02/24 08:14 12/02/24 11:43
Intake & Output
11/30/24 12/01/24 12/02/24 12/03/24
07:59 07:59 07:59 07:59
Intake Total 1280 / 1280 3840 / 3840
Balance 1280 / 1280 3840 / 3840
Physical Exam
Physical Exam
GEN: No distress, awake, alert, oriented x3. Obese. HUSLIA
HEENT: supple, anicteric, mmm, EOMI
LUNGS: CTA bilaterally, no wheezes/rales
CV: Reg, S1/S2, no murmur
ABD: soft, BS+, NT/ND
EXT: No cyanosis, clubbing, edema
NEURO: Gross non-focal
SKIN: Warm, pink, dry. No rash.
[2024-12-02 13:52] LABS: Glucose - Point of Care 138 mg/dl (70-99)
--- NOTE | 2024-12-02 14:03 | CM ---
Chart reviewed. Patient is independent of ADLS, lives alone in a 4th floor apartment at [facility], elevator access, 0 DME. Plan is for the patient to return home. CM to follow
[2024-12-02 15:10] VITALS: BP 113/60
--- NOTE | 2024-12-02 17:22 | W.PN.UPDATE ---
Update Note
Progress Note Update
Interventional cardiology update note
Patient was evaluated and an extensive discussion was had at bedside with patient along with her 2 daughters including Bridget who was available on the phone along with the son-in-law.
We discussed findings of her EGD and colonoscopy from earlier today which showed gastritis and duodenitis with 3 small colonic polyps without evidence of any malignancies. Per GI she is okay to have DAPT starting tomorrow morning with and she was
resumed on her diet.
Patient was feeling well currently and is in no acute distress, awake, alert and oriented x 3, regular rate, normal S1 and S2, no murmurs, rubs or gallops, abdomen is obese, soft, nontender, nondistended with active bowel sounds, right radial access
site with dressing in place which is clean, dry and intact without evidence of hematoma and bruit, warm extremities without significant edema.
We discussed multiple options in regards to timing of PCI including 1, we would load her with Plavix tomorrow morning and pursue RCA PCI tomorrow afternoon versus we will load her with Plavix tomorrow morning and get her started on daily 75 mg
Plavix along with aspirin 81 mg daily work on discharging her tomorrow and bring her back as an outpatient for PCI early next week. We discussed the risk and benefits of each of the options. Given patient herself has multiple different allergies
to medications, she would like to look make sure she can tolerate the Plavix without any issues before pursuing and being committed to PCI which I think is completely reasonable. For now our plan is to initiate Plavix tomorrow with a loading dose
of 600 mg
Once followed by 75 mg daily while continuing her on daily baby aspirin, high intensity statin and beta-izabela as she is tolerating. We will get her on my outpatient schedule for RCA PCI for next Saturday, December 08, 2024. We will make her
n.p.o. after midnight just in case they have a change in mind and reassess in the morning to make sure that the plan is still as discussed.
All of the above was discussed with nursing at bedside. All of their questions were answered to the best of my ability in significant detail.
Adilia Mathews MD, FACC, [facility]
Total time spent: 36 minutes
[2024-12-02 17:28] LABS: Glucose - Point of Care 136 mg/dl (70-99)
[2024-12-02] MEDS: LOVENOX 40 MG SC (17:55)
[2024-12-02 18:53] VITALS: BP 118/55
[2024-12-02 19:07] VITALS: BP 116/50
[2024-12-02] MEDS: SENOKOT PO (20:23)
[2024-12-02 21:55] VITALS: BP 110/50
[2024-12-02 21:55] LABS: Glucose - Point of Care 176 mg/dl (70-99)
[2024-12-02] MEDS: MELATONIN 5 MG PO (22:14)
[2024-12-03] VITALS (12 sets, daily range): BP systolic 113–129; BP diastolic 51–101
--- NOTE | 2024-12-03 00:54 | PTCARENOTE ---
Pt in NSR on the monitor, VSS, no complaints of chest pain/discomfort. Right radial cath site dressing CDI without drainage/hematoma. Ambulates with minimal assist x1. NPO for PCI later this morning; understanding verbalized.
[2024-12-03 04:12] LABS: Hematocrit 36.9 % (37.0-47.0); Hemoglobin 12.4 g/dL (12.0-16.0); Mean Corp Hgb Conc. 33.6 g/dL (33.0-37.0); Mean Corpuscular Volume 94.4 fL (81.0-99.0); Platelet Count 174 10^3/uL (130-400); Red Cell Dist. Width 13.2 % (11.5-14.5)
[2024-12-03 04:38] LABS: Blood Urea Nitrogen 18 mg/dl (7-17); Calcium 8.9 mg/dl (8.4-10.2); Carbon Dioxide 29 mmol/L (22-30); Chloride 104 mmol/L (98-107); Estimated Creatinine Clearance 57 ml/min; Glucose 128 mg/dl (70-99); Potassium 3.5 mmol/L (3.5-5.1); Sodium 138 mmol/L (135-145); eGFR > 60.00
[2024-12-03] MEDS: SYNTHROID 50 MCG PO (05:41)
[2024-12-03] MEDS: SPIRIVA RESPIMAT 2.5 MCG 2 PUFF INH (08:18)
[2024-12-03] MEDS: STRIVERDI RESPIMAT 2 PUFF INH (08:19)
[2024-12-03 08:48] LABS: Glucose - Point of Care 153 mg/dl (70-99)
[2024-12-03] MEDS: PLAVIX 600 MG PO (08:48)
[2024-12-03] MEDS: EFFEXOR 75 MG PO (08:50)
[2024-12-03] MEDS: LIPITOR 40 MG PO (08:50)
[2024-12-03] MEDS: LOW STRENGTH ASPIRIN 81 MG PO (08:51)
[2024-12-03] MEDS: ORETIC 12.5 MG PO (08:51)
[2024-12-03] MEDS: PROTONIX IV 40 MG IV (08:52)
[2024-12-03] MEDS: NSS (PRESERVATIVE FREE) 10 ML IV (08:52)
[2024-12-03] MEDS: TENORMIN 25 MG PO (08:52)
[2024-12-03] MEDS: COZAAR 50 MG PO (08:53)
[2024-12-03] MEDS: NOVOLOG FLEXPEN-LOW RESISTANCE 1 UNITS SC (08:53)
[2024-12-03] MEDS: NORVASC 2.5 MG PO (08:54)
--- NOTE | 2024-12-03 10:49 | W.PN.HOSP.TC ---
Today's Communication/Plan
-
Cath today
Assessment / Plan
Assessment / Plan
79-year-old female had an abnormal Cologuard test. She was referred for an outpatient stress test and coronary CT which were abnormal therefore sent in for a cath. Cath showed she has obstructive disease 80 to 85% ostial RCA and mid RCA. She
needs GI workup therefore PCI not done yet but planning in the near future as long as GI workup is negative. Patient is cleared for GI procedure per cardiology
11/30/2024-cardiac cath-ostial RCA 75 to 80% stenosis. Mid RCA focal 80% stenosis. Mid to distal LAD has diffuse 40 to 50% stenosis. Ostial B1 40 to 50% stenosis. Ostial left circumflex 40% calcified stenosis
ECHO 08/14/24- Technically suboptimal study.Normal left and right ventricular systolic function, but regional wall motion abnormality cannot be excluded due to the technical limitation.Grade 1 diastolic dysfunction.No significant valve disease.
Hypermobile possibly aneurysmal interatrial septum.
Coronary angiography 1924-left main-moderate to severe ostial calcified plaque , LAD-severe proximal and middle mid calcified Plaque, LCx-moderate to severe proximal calcified plaque, RCA-severe diffuse proximal to mid calcified plaque, severe
distal calcified plaque. Multivessel coronary disease.
Colonoscopy-4 mm polyp in the TC removed, internal hemorrhoids, diverticulosis DC, sigmoid, AC. 2 polyps in the AC removed
EGD 12/03/2024-normal esophagus. Erythematous mucosa in the antrum. 2 cm hiatal hernia. Erythematous duodenopathy. Small duodenal diverticulum in the second portion.
Patient awake alert
Cardiovascular system S1-S2 appreciated
Chest clear to auscultation
# Positive Cologuard test
EGD/Colonoscopy done on 12/02/24-without any evidence of mass/malignancy or active bleeding
GI cleared for Plavix
# Coronary artery disease
Status post cath with no PCI given colonoscopy
Plavix loaded and takes 25 mg daily dosage
For cardiac cath for RCA stent on 12/03/2024
Continue aspirin, statin
LDL acceptable
# Hypertension-continue losartan, atenolol.
# Diabetes-hemoglobin A1c--7.0
Hold metformin given cardiac cath and needing to be n.p.o. for GI procedures
Accu-Cheks and sliding scale coverage
# Depression-continue venlafaxine, bupropion
# Hyperlipidemia-continue statin
# Hypothyroidism-continue levothyroxine
# Sleep apnea-CPAP at 6 cm water
# Fibromyalgia
# History of lung cancer on the left side with history of radiation 2-1/2 years ago
# Mh-wdyupu-sxuv over 35 years ago
# DVT prophylaxis-Lovenox
# CODE STATUS-full code
Discussed with nursing at bedside
Discussed with patient's daughter Bridget on the phone. All questions answered
Part of this note was created using voice recognition system. Occasional wrong word or��sound alike� substitutions may have inadvertently occurred due to the inherent limitations of voice recognition software. If noted kindly bring it to my
attention for correction.
Anticipated Discharge: Within 24 hours
Subjective/Interval History
-
Date of Service: December 03, 2024
Objective Data
-
Labs:
Laboratory Results
12/03/24
03:18
WBC 7.8
Hgb 12.4
Hct 36.9 L
Plt Count 174
Sodium 138
Potassium 3.5
Chloride 104
Carbon Dioxide 29
BUN 18 H
Creatinine 0.9
Glucose 128 H
Calcium 8.9
Vital Signs:
Vital Signs
Temp Pulse Resp BP Pulse Ox
97.8 F 70 18 113/51 96
12/03/24 08:21 12/03/24 09:00 12/03/24 08:24 12/03/24 08:53 12/03/24 09:19
I&O
12/02/24 12/03/24 12/04/24
06:59 06:59 06:59
Intake Total 3840 / 3840
Output Total 200 / 200
Balance 3840 / 3840 -200 / -200
--- NOTE | 2024-12-03 11:20 | CM ---
Chart reviewed. Patient is independent of ADLS, lives alone in a 4th floor apartment at [place], [place], elevator access, 0 DME. Patient is waiting to go for a PCI today. Plan is for the patient to return home. CM to follow
[2024-12-03 11:59] LABS: Glucose - Point of Care 138 mg/dl (70-99)
[2024-12-03] MEDS: NOVOLOG FLEXPEN-LOW RESISTANCE SC ×2 (14:30→19:27)
[2024-12-03 16:49] LABS: ACT-LR - POC 269 Seconds (116-155)
[2024-12-03 17:03] LABS: ACT-LR - POC 377 Seconds (116-155)
[2024-12-03] MEDS: MIRALAX PO (17:07)
[2024-12-03] MEDS: ANTIVERT PO (17:07)
[2024-12-03 17:25] LABS: ACT-LR - POC 363 Seconds (116-155)
[2024-12-03 17:52] LABS: ACT-LR - POC 300 Seconds (116-155)
[2024-12-03 17:58] LABS: ACT-LR - POC 281 Seconds (116-155)
[2024-12-03 18:42] LABS: ACT-LR - POC 360 Seconds (116-155)
--- NOTE | 2024-12-03 19:00 | ITS.CL.CATH ---
Booking Supervisor - Catheterization
Cardiac Catheterization
Procedure Report:
CORONARY INTERVENTION
Date of Procedure: December 03, 2024
Referring: Dr. Mark Jones MD
PROCEDURES:
1. Left heart catheterization to help guide post-PCI fluid management.
2. Moderate sedation.
3. IV L shockwave
4. Successful percutaneous coronary artery intervention of a heavily calcified 90 to 95% mid RCA stenosis with one 2.5 x 12 mm Medtronic [place] frontier drug-eluting stent, postdilated with a 2.5mm NC balloon at high pressures with an excellent
angiographic result.
5. Successful percutaneous coronary artery intervention of a heavily calcified 80 to 85% ostial RCA stenosis post IV L shockwave with one 3.0 x 12 mm Medtronic [place] frontier drug-eluting stent, postdilated with a 3.25 mm NC balloon at high
pressures with an excellent angiographic result.
INDICATION: Abnormal stress test in the setting of ongoing dyspnea on exertion
ACCESS: Right radial artery, 6Fr. sheath, under US guidance.
HEMODYNAMICS : (mmHg)
AO (s/d) : 118/66
LVEDP : 20
No significant gradient across the aortic valve to suggest aortic stenosis.
CORONARY FINDINGS
Dominance: Right
Right Coronary Artery (RCA): Medium caliber dominant vessel that gives rise to the posterior descending artery (RPDA) and postero-lateral ventricular (RPLV) branches distally. There is calcium noted in the aorta at the takeoff of the RCA. Ostial
RCA has a heavily calcified 80-85% stenosis. Mid RCA has a focal heavily calcified 90-95% stenosis. SASHA-3 flow was noted into the distal vessel. Right posterolateral system has diffuse moderate to severe stenosis with known [id number]
collaterals from the left posterolateral branch.
CORONARY INTERVENTION: Heparin was given to maintain a therapeutic ACT throughout the case. We engaged RCA initially with JR4 guide and with lot of difficulty advanced a 190cm 0.014 Runthrough wire into distal RCA. We attempted to predilate the mid
RCA lesion however could not advance balloon past calcified lesion in mid portion despite attempted smaller balloons and despite predilating the ostial lesion which had a significant waist even with a 3mm NC balloon at high pressures. We even tried
placing a wiggle wire for additional support by exchanging via a turnpike LP over 300cm BMW wire in distal RCA and using the initial runthrough as 'radha wire' as JR4 guide provided very poor guide support. At this point, we decided to remove
everything in favor to bringing in a more supportive guide. We initially tried an AL 0.75 which wouldn't site well. We think brought in a 6Fr AR1 guide which provided more support. We placed 300cm BMW into distal vessel and successfully predilated
mid RCA lesion using 2.5mm semi-compliant balloon with full expansion. Then we stented the mid lesion with 2.5x12mm Medtronic casimiro frontier SANDY and post dilated with 2.5x12mm NC balloon at 18atm. We then used a 3.0mm IVL shockwave balloon for
heavily calcified ostial lesion delivering 7 cycles there and subsequent predilated using 3.0x12mm NC balloon with full expansion. Lesion was successfully stented using a 3.0x 12mm Medtronic [place] frontier SANDY and post dilated suing 3.25mm NC balloon
at 18atm distally and 20atm proximally with an excellent angiographic result. Patient tolerated procedure well with no acute complications. She had been loaded with 600mg plavix AM of procedure.
SEDATION: 136 minutes of procedural sedation was utilized. IV Midazolam and IV Fentanyl were administered. An independent curator medical museum was present to assist with and help manage the patient's level of consciousness and physiologic status.
RADIATION SUMMARY: Fluoro Time (min): 47.7, Dose (mGy): 1596.13 DAP (Gy.cm2) : 92.56
Closure Device: There were no immediate intra-procedural complications. The sheath was pulled in the dairy and food laboratory assistant and a vascular-band applied to the right wrist for radial artery hemostasis using the patent hemostasis technique.
CONCLUSIONS
1. Successful percutaneous coronary artery intervention of a heavily calcified 90 to 95% mid RCA stenosis with one 2.5 x 12 mm Medtronic [place] frontier drug-eluting stent, postdilated with a 2.5mm NC balloon at high pressures with an excellent
angiographic result.
2. Successful percutaneous coronary artery intervention of a heavily calcified 80 to 85% ostial RCA stenosis post IV L shockwave with one 3.0 x 12 mm Medtronic [place] frontier drug-eluting stent, postdilated with a 3.25 mm NC balloon at high
pressures with an excellent angiographic result.
3. LVEDP 20mmHG
RECOMMENDATIONS
1. Wean radial band per protocol. Monitor right hand perfusion and for bleeding from the radial site following removal of the vascular-band following trans-radial access.
2. Continue aggressive medical therapy and risk factor modification for secondary CAD prevention.
3. Continue ASA 81 mg daily for life.
4. Continue clopidogrel for at least 12 months of uninterrupted dual anti-platelet therapy given drug-eluting stent (SANDY) implantation to mitigate the risk of stent thrombosis. This is not to be stopped for any reason without the guidance of a
roofing apprentice.
5. Hydrate with normal saline to mitigate the risk of contrast-induced acute kidney injury.
6. Referral for outpatient cardiac rehab.
7. Follow-up with Dr. Mark Jones
Adilia Mathews MD, [facility], [facility]
Copy to: Dr. Mark Jones MD
[2024-12-03 19:19] LABS: Glucose - Point of Care 115 mg/dl (70-99)
[2024-12-03] MEDS: NSS 1000 IV (19:22)
--- NOTE | 2024-12-03 19:40 | PTCARENOTE ---
Pt taken to cardiac cath lab radiology technologist @@16:05 and returned @19:10. Right radial band in place , pt's hand cool and pale with a good radial pulse. Activity restrictions reviewed with pt. Pt denies any discomfort. Pt seen by . Telemetry shows sinus rhythm.
Plan to monitor closely and remove radial band per protocol.
[2024-12-03 22:11] LABS: Glucose - Point of Care 202 mg/dl (70-99)
[2024-12-03] MEDS: MELATONIN 5 MG PO (22:11)
[2024-12-03] MEDS: SENOKOT 17.2 MG PO (22:11)
--- NOTE | 2024-12-03 22:32 | PTCARENOTE ---
assumed care of patient @ 1900. R radial TR band in place, hand is cool with good cap refill and good pulse. will start deflating at 2100. otherwise pt resting comfortably in bed with call adler within reach .
[2024-12-04] VITALS (7 sets, daily range): BP systolic 86–135; BP diastolic 59–84
[2024-12-04 05:07] LABS: Hematocrit 35.6 % (37.0-47.0); Hemoglobin 11.9 g/dL (12.0-16.0); Mean Corp Hgb Conc. 33.4 g/dL (33.0-37.0); Mean Corpuscular Volume 94.7 fL (81.0-99.0); Platelet Count 185 10^3/uL (130-400); Red Cell Dist. Width 13.2 % (11.5-14.5)
[2024-12-04 05:25] LABS: Blood Urea Nitrogen 19 mg/dl (7-17); Calcium 8.3 mg/dl (8.4-10.2); Carbon Dioxide 29 mmol/L (22-30); Chloride 103 mmol/L (98-107); Estimated Creatinine Clearance 51 ml/min; Glucose 202 mg/dl (70-99); Potassium 3.4 mmol/L (3.5-5.1); Sodium 138 mmol/L (135-145); eGFR 56.60
[2024-12-04] MEDS: SYNTHROID 50 MCG PO (06:19)
[2024-12-04 07:54] LABS: ACT-LR - POC > 397 Seconds (116-155)
[2024-12-04 08:43] LABS: Glucose - Point of Care 148 mg/dl (70-99)
[2024-12-04] MEDS: SPIRIVA RESPIMAT 2.5 MCG 2 PUFF INH (08:45)
[2024-12-04] MEDS: STRIVERDI RESPIMAT 2 PUFF INH (08:45)
[2024-12-04] MEDS: NOVOLOG FLEXPEN-LOW RESISTANCE SC (08:46)
[2024-12-04] MEDS: MIRALAX PO (08:54)
[2024-12-04] MEDS: EFFEXOR 75 MG PO (08:55)
[2024-12-04] MEDS: KCL 20 MEQ PO (08:55)
[2024-12-04] MEDS: PLAVIX 75 MG PO (08:57)
[2024-12-04] MEDS: LOW STRENGTH ASPIRIN 81 MG PO (08:57)
[2024-12-04] MEDS: ORETIC 12.5 MG PO (08:57)
[2024-12-04] MEDS: PROTONIX IV 40 MG IV (08:58)
[2024-12-04] MEDS: LIPITOR 40 MG PO (08:58)
[2024-12-04] MEDS: NSS (PRESERVATIVE FREE) 10 ML IV (08:58)
[2024-12-04] MEDS: NORVASC PO ×2 (09:00→09:08)
[2024-12-04] MEDS: LASIX 20 MG IV (09:01)
[2024-12-04] MEDS: TENORMIN 25 MG PO (09:01)
[2024-12-04] MEDS: COZAAR PO ×2 (09:01→09:07)
[2024-12-04] MEDS: ANTIVERT PO (09:02)
--- NOTE | 2024-12-04 09:04 | W.PN.CARDCBS ---
Addendum entered and electronically signed by Zhou Martin MD 12/04/24 15:20:
I saw and examined the patient.
The Engine Repair Supervisor's note was reviewed and I agree with the note.
Comment: Briefly, 79-year-old woman with ongoing dyspnea on exertion who underwent outpatient coronary CTA suggestive of significant CAD burden. She presented for coronary angiography 11/30/2024 which confirmed multivessel CAD. With concern for
ongoing GI bleeding patient had EGD and colonoscopy prior to proceeding with intervention. Ultimately decision was made to intervene on her RCA 12/03/2024 which was treated with 2 drug-eluting stents.
Postprocedure patient is feeling well today. No cardiac complaints including no further chest discomfort or dyspnea.
Plan to discharge on dual antiplatelet therapy for 12 months (aspirin/Plavix) as well as high intensity atorvastatin
Home blood pressure meds were continued: Atenolol, losartan, hydrochlorothiazide
Plan for eventual cardiac rehab
Stable for discharge from my perspective. She should follow-up with her primary alining inspector Dr. Jones.
Original Note:
Today's Communication / Plan
-
stop norvasc
ambulate
continue asa, plavix, atenolol, losartan/HCTZ, lipitor
plan for DC to home
OP follow up with Dr. Jones
Impression / Plan
-
Primary Art Appraiser: Dr. Jones [facility]
Assessment:
Abnormal cardiac CTA/nuclear stress test with RCA lesion by cath 11/30/2024
Positive outpatient Cologuard test, EGD/colon with gastritis/duodenitis, s/p polyp removal 12/02
Dyspnea on exertion
Orthostatic hypotension
PVCs
Hypertension
Hyperlipidemia
Hypothyroidism
Depression/anxiety
BPPV
ECHO 08/14/2024: EF 60 to 65%, grade 1 diastolic dysfunction, no significant valvular heart disease seen, hypermobile possible aneurysmal interatrial septum
Plan:
- Patient with complaints of dyspnea on exertion and history of abnormal nuclear stress testing underwent cardiac CTA on 11/18/2024 which showed significant multivessel CAD including moderate to severe ostial left main, severe proximal and mid LAD,
moderate to severe left circumflex and severe diffuse proximal and mid RCA and distal RCA plaque with calcium score of 1901.99. She was then referred for cardiac catheterization which she underwent on 11/30/2024 which showed ostial and mid RCA
stenoses of approximately 80% as well as moderate LAD and circumflex disease without focal obstructive lesions and distal left main without obstructive coronary artery disease.
- Complicating matters, patient had recent positive Cologuard test. appreciate GI input. underwent EGD/colonoscopy 12/02 which showed gastritis and duodenitis with several colonic polyps s/p removal.
- s/p RCA PCI x2 with shockwave 12/03/24
- she reports some shoulder and upper chest discomfort with movement this AM. EKG SR with LBBB, review of tele SR overnight. will provide tylenol
- continue asa, plavix. hgb 11.9
- received dose of IV lasix 20mg 12/03 for LVEDP of 20. replete K
- BPs low but stable this AM. held losartan this AM. will attempt to continue atenolol and losartan/HCTZ as OP. will stop norvasc, started this admission
- ambulate
- plan for DC to home today
- OP follow up with Dr. Jones arranged
- d/w nursing. d/w patient and grandson at bedside
Progress Note - Art Appraiser
Subjective
Date of Service: December 04, 2024
reports some upper chest/shoulder pain with movement overnight and this AM, improving
Objective
Labs:
12/04/24 04:50
12/04/24 04:50
Labs
Hgb 11.9 g/dL (12.0-16.0) L 12/04/24 04:50
Hct 35.6 % (37.0-47.0) L 12/04/24 04:50
Plt Count 185 10^3/uL (130-400) 12/04/24 04:50
Sodium 138 mmol/L (135-145) 12/04/24 04:50
Potassium 3.4 mmol/L (3.5-5.1) L 12/04/24 04:50
BUN 19 mg/dl (7-17) H 12/04/24 04:50
Creatinine 1.0 mg/dL (0.6-1.0) 12/04/24 04:50
Glucose 202 mg/dl (70-99) H 12/04/24 04:50
Vital Signs and I&O:
Vital Signs
Temp Pulse Resp BP Pulse Ox
99.3 F 87 16 112/62 98
12/04/24 07:58 12/04/24 08:48 12/04/24 08:48 12/04/24 09:00 12/04/24 08:48
Vital Signs
Temp Pulse Resp BP Pulse Ox
99.3 F 87 16 11262 98
12/04/24 07:58 12/04/24 08:48 12/04/24 08:48 12/04/24 09:00 12/04/24 08:48
Intake & Output
12/02/24 12/03/24 12/04/24 12/05/24
07:59 07:59 07:59 07:59
Intake Total 3840 / 3840
Output Total 200 / 200
Balance 3840 / 3840 -200 / -200
Physical Exam
Physical Exam
GEN: No distress, awake, alert, oriented x3. [place]. obese
HEENT: supple, anicteric, mmm, eomi
LUNGS: CTA B/L, no wheezes/rales
CV: Reg, S1/S2, no murmur
ABD: soft, BS+, NT/ND
EXT: No cyanosis, clubbing. Trace edema of B/L LE
NEURO: Gross non-focal
SKIN: Warm, pink, dry. No rash. R wrist and groin sites soft, NTTP
[2024-12-04] MEDS: TYLENOL 650 MG PO (09:08)
--- NOTE | 2024-12-04 10:20 | W.PN.HOSP.TC ---
Addendum entered and electronically signed by Fred Armas MD 12/04/24 12:44:
X-ray noted without any acute changes likely pain from fibromyalgia as she has pain with palpation
Discharge
More than 30 minutes spent in discharge including
Final examination of the patient
Summarizing hospital stay
Instructions for continuing care to all relevant caregivers
Preparation of discharge records, prescriptions, and referral forms
Original Note:
Today's Communication/Plan
-
CXR given scapular pain/ chest wall discomfort
If neg discharge
Assessment / Plan
Assessment / Plan
79-year-old female had an abnormal Cologuard test. She was referred for an outpatient stress test and coronary CT which were abnormal therefore sent in for a cath. Cath showed she has obstructive disease 80 to 85% ostial RCA and mid RCA. She
needs GI workup therefore PCI not done yet but planning in the near future as long as GI workup is negative. Patient is cleared for GI procedure per cardiology
11/30/2024-cardiac cath-ostial RCA 75 to 80% stenosis. Mid RCA focal 80% stenosis. Mid to distal LAD has diffuse 40 to 50% stenosis. Ostial B1 40 to 50% stenosis. Ostial left circumflex 40% calcified stenosis
ECHO 08/14/24- Technically suboptimal study.Normal left and right ventricular systolic function, but regional wall motion abnormality cannot be excluded due to the technical limitation.Grade 1 diastolic dysfunction.No significant valve disease.
Hypermobile possibly aneurysmal interatrial septum.
Coronary angiography 1924-left main-moderate to severe ostial calcified plaque , LAD-severe proximal and middle mid calcified Plaque, LCx-moderate to severe proximal calcified plaque, RCA-severe diffuse proximal to mid calcified plaque, severe
distal calcified plaque. Multivessel coronary disease.
Colonoscopy-4 mm polyp in the TC removed, internal hemorrhoids, diverticulosis DC, sigmoid, AC. 2 polyps in the AC removed
EGD 12/03/2024-normal esophagus. Erythematous mucosa in the antrum. 2 cm hiatal hernia. Erythematous duodenopathy. Small duodenal diverticulum in the second portion.
Patient awake alert
Cardiovascular system S1-S2 appreciated
Chest clear to auscultation
# Positive Cologuard test
EGD/Colonoscopy done on 12/02/24-without any evidence of mass/malignancy or active bleeding
GI cleared for Plavix
# Coronary artery disease
Plavix loaded and takes 75 mg daily dosage
S/P cardiac cath and 2 RCA stents on 12/03/2024
Continue aspirin, statin
LDL acceptable
# Hypertension-continue losartan, atenolol.
# Diabetes-hemoglobin A1c--7.0
Restart metformin tomorrow as OP
Accu-Cheks and sliding scale coverage
# Depression-continue venlafaxine, bupropion
# Hyperlipidemia-continue statin
# Hypothyroidism-continue levothyroxine
# Sleep apnea-CPAP at 6 cm water
# Fibromyalgia
# History of lung cancer on the left side with history of radiation 2-1/2 years ago
# Xf-ftfruv-hjnf over 35 years ago
# DVT prophylaxis-Lovenox
# CODE STATUS-full code
Discussed with nursing at bedside
Discussed with patient's grandson at bed side
Part of this note was created using voice recognition system. Occasional wrong word or��sound alike� substitutions may have inadvertently occurred due to the inherent limitations of voice recognition software. If noted kindly bring it to my
attention for correction.
Anticipated Discharge: Today
Subjective/Interval History
-
Date of Service: December 04, 2024
Objective Data
-
Labs:
Laboratory Results
12/04/24
04:50
WBC 10.0
Hgb 11.9 L
Hct 35.6 L
Plt Count 185
Sodium 138
Potassium 3.4 L
Chloride 103
Carbon Dioxide 29
BUN 19 H
Creatinine 1.0
Glucose 202 H
Calcium 8.3 L
Vital Signs:
Vital Signs
Temp Pulse Resp BP Pulse Ox
99.3 F 72 16 112/62 98
12/04/24 07:58 12/04/24 10:00 12/04/24 08:48 12/04/24 09:00 12/04/24 08:48
I&O
12/03/24 12/04/24 12/05/24
06:59 06:59 06:59
Output Total 200 / 200
Balance -200 / -200
--- NOTE | 2024-12-04 12:07 | CM ---
Chart reviewed. Patient is independent of ADLS, lives alone in a apartment, 4th floor, elevator access, 0 DME. Offered patient VN, patient declined. Patient said her daughter is a nurse and her other daughter is going to stay with her. Plan is
for the patient to return home.
[2024-12-04 12:15] LABS: Glucose - Point of Care 177 mg/dl (70-99)
[2024-12-04] MEDS: NOVOLOG FLEXPEN-LOW RESISTANCE 1 UNITS SC (12:15)
--- NOTE | 2024-12-04 12:44 | W.DS.TRANS ---
Addendum entered and electronically signed by Fred Armas MD 12/04/24 13:53:
Dictation- [id number]
Original Note:
DC Summary - Splitting Machine Tender
-
Discharge Instructions:
Discharge Diagnosis/Procedures Angioplasty and lithotripsy with stent to RCA x2
Endoscopy and colonoscopy 12/02/2024
Hypertension
Diabetes
Depression
Hyperlipidemia
Hypothyroidism
Sleep apnea
Fibromyalgia
History of lung cancer with radiation
Diet Low Cholesterol,Diabetic, Carb Controlled,2 Gram
Sodium
Activity As tolerated
Driving Restrictions No driving for 24 hours
Other Services Cardiac Rehab
Specialty Instructions Weigh Daily
Instructions:
Stand-Alone Forms: DC Instructions- Cath/EP Lab
Changes to Home Medications: Yes
Discharge Medications:
DC Medications w/original date entered in [employer]
albuterol sulfate 90 mcg/actuation aerosol inhaler 2 puff inhalation 6XD Lung/Breathing Issues 11/30/24
aspirin 81 mg tablet 81 mg PO DAILY Blood Clot Prevention/Tx 11/30/24
atenolol 25 mg tablet 25 mg PO DAILY Blood Pressure 11/30/24
atorvastatin 40 mg tablet 40 mg PO DAILY High Cholesterol 11/30/24
bupropion HCl 150 mg 24 hr tablet, extended release 150 mg PO DAILY Depression 11/30/24
levothyroxine 50 mcg tablet 50 mcg PO DAILY Thyroid 11/30/24
losartan 50 mg-hydrochlorothiazide 12.5 mg tablet 1 tab PO DAILY Blood Pressure 11/30/24
meclizine 25 mg tablet 25 mg PO DAILY nausea/vertigo 11/30/24
metformin 500 mg tablet 500 mg PO BID Diabetes 11/30/24
Held on 12/04/24. Instructions: Resume on 12/05/24.
umeclidinium 62.5 mcg-vilanterol 25 mcg/actuation powdr for inhalation (Anoro Ellipta) 1 inh inhalation DAILY Lung/Breathing Issues 11/30/24
venlafaxine 75 mg tablet 75 mg PO DAILY Depression 11/30/24
clopidogrel 75 mg tablet 75 mg PO DAILY Blood clot prevention/tx #30 tabs 12/04/24
pantoprazole 40 mg tablet,delayed release (Protonix) 40 mg PO DAILY Gastrointestinal issue #30 tabs 12/04/24
polyethylene glycol 3350 17 gram oral powder packet 17 g PO DAILY Constipation #0 ea 12/04/24
Home Medication Changes
Plavix and Protonix are new
Pending Results: No
== END 2024-12-04 17:10 | disposition home or self-care (01) | DRG 324 ==
LOC: IVU 17:13
PROVIDERS: Nurse Practitioner; ADMITTING PHYSICIAN Hospitalist; ATTENDING PHYSICIAN Internal Medicine Interventional Cardiology; CONSULT PHYSICIAN Internal Medicine Gastroenterology; FAMILY PHYSICIAN Nurse Practitioner Family
PROC: 5A09357 Assistance with Respiratory Ventilation, Less than 24 Consecutive Hours, Continuous Positive Airway Pressure (ICD-10-PCS; 2024-11-30)
PROC: 4A023N7 Measurement of Cardiac Sampling and Pressure, Left Heart, Percutaneous Approach (ICD-10-PCS; 2024-11-30)
PROC: B241ZZ3 Ultrasonography of Multiple Coronary Arteries, Intravascular (ICD-10-PCS; 2024-11-30)
PROC: B2111ZZ Fluoroscopy of Multiple Coronary Arteries using Low Osmolar Contrast (ICD-10-PCS; 2024-11-30)
PROC: B2151ZZ Fluoroscopy of Left Heart using Low Osmolar Contrast (ICD-10-PCS; 2024-11-30)
PROC: 0DB58ZX Excision of Esophagus, Via Natural or Artificial Opening Endoscopic, Diagnostic (ICD-10-PCS; 2024-12-02)
PROC: 0DBK8ZZ Excision of Ascending Colon, Via Natural or Artificial Opening Endoscopic (ICD-10-PCS; 2024-12-02)
PROC: 0DBL8ZZ Excision of Transverse Colon, Via Natural or Artificial Opening Endoscopic (ICD-10-PCS; 2024-12-02)
PROC: 0DB98ZX Excision of Duodenum, Via Natural or Artificial Opening Endoscopic, Diagnostic (ICD-10-PCS; 2024-12-02)
PROC: 0DB78ZX Excision of Stomach, Pylorus, Via Natural or Artificial Opening Endoscopic, Diagnostic (ICD-10-PCS; 2024-12-02)
PROC: 027135Z Dilation of Coronary Artery, Two Arteries with Two Drug-eluting Intraluminal Devices, Percutaneous Approach (ICD-10-PCS; 2024-12-03)
PROC: 02F03ZZ Fragmentation in Coronary Artery, One Artery, Percutaneous Approach (ICD-10-PCS; 2024-12-03)
DX: I25.10 Atherosclerotic heart disease of native coronary artery without angina pectoris (principal); S22.32XA Fracture of one rib, left side, initial encounter for closed fracture; R19.5 Other fecal abnormalities; I10 Essential (primary) hypertension; E03.9 Hypothyroidism, unspecified; F32.A Depression, unspecified; G47.30 Sleep apnea, unspecified; M79.7 Fibromyalgia; J44.9 Chronic obstructive pulmonary disease, unspecified; E11.42 Type 2 diabetes mellitus with diabetic polyneuropathy; D12.2 Benign neoplasm of ascending colon; D12.3 Benign neoplasm of transverse colon; K64.8 Other hemorrhoids; K57.30 Diverticulosis of large intestine without perforation or abscess without bleeding; K31.89 Other diseases of stomach and duodenum; K44.9 Diaphragmatic hernia without obstruction or gangrene; K57.10 Diverticulosis of small intestine without perforation or abscess without bleeding; E78.5 Hyperlipidemia, unspecified; R19.4 Change in bowel habit; K21.9 Gastro-esophageal reflux disease without esophagitis; E66.9 Obesity, unspecified; X58.XXXA Exposure to other specified factors, initial encounter; Z68.35 Body mass index [BMI] 35.0-35.9, adult; Z79.82 Long term (current) use of aspirin; Z79.84 Long term (current) use of oral hypoglycemic drugs; Z79.899 Other long term (current) drug therapy; Z82.49 Family history of ischemic heart disease and other diseases of the circulatory system; Z85.118 Personal history of other malignant neoplasm of bronchus and lung; Z87.891 Personal history of nicotine dependence; Z92.3 Personal history of irradiation; K57.50 Diverticulosis of both small and large intestine without perforation or abscess without bleeding
CPT/HCPCS: 71046; 80048; 80061; 82962; 83036; 85027; 85347; 88305; 88342; 92972; 92978; 93005; 93458; 94640; 94660; 99152; 99153; C1725; C1753; C1761; C1769; C1874; C1887; C1894; C9600; Q9967